=== PATIENT | male | born 1970 | race Two or more races ===

== ENCOUNTER 2019-05-03 15:43 | Emergency (ER) | payer SELFPAY ==
--- NOTE | 2019-05-03 16:10 | PDOC ---
History of Present Illness - General Chief Complaint: Laceration Stated Complaint: WOUND Time Seen by Provider: 05/03/19 16:10 History Source: Patient Exam Limitations: No Limitations - History of Present Illness Initial Comments: 05/03/19 18:13 49M w/ pmh of asthma, COPD presents after sustaining a distal Right anterior thigh laceration after using a saw when cutting shrubbery at home. Injury occurred ~15mins prior to presentation. Says blood dripped down, causing his sock to be soaked. Denies LOC. Ambulated from the scene. Denies pain to the feet , numbness. Saw was new. The injury was unintended and the patient expresses a strong desire to return home as soon as possible. Associated Symptoms: denies: chest pain, cough, diaphoresis, fever/chills, nausea/vomiting, syncope, weakness Past History - Travel Traveled outside of the country in the last 30 days: No Close contact w/someone who was outside of country & ill: No - Past Medical History Allergies/Adverse Reactions: Allergies Allergy/AdvReac Type Severity Reaction Status Date / Time No Known Allergies Allergy Verified 05/03/19 15:47 Home Medications: Ambulatory Orders Cephalexin [Keflex] 500 mg PO BID 5 Days #10 capsule 05/03/19 Anemia: No Asthma: Yes Cardiac Disorders: No CVA: No COPD: No DVT: Yes - Family Disease History Family Disease History: Other: Father (none), Mother (none) - Immunization History Immunization Up to Date: Yes - Suicide/Smoking/Psychosocial Hx Smoking Status: Yes Smoking History: Current every day smoker Years of Tobacco Use: 20 Have you smoked in the past 12 months: Yes Number of Cigarettes Smoked Daily: 10 Information on smoking cessation initiated: No Hx Alcohol Use: Yes (social) Drug/Substance Use Hx: No Review of Systems - Review of Systems Able to Perform ROS?: Yes Is the patient limited Occitan proficient: No Constitutional: No: Chills, Fever, Malaise, Weakness HEENTM: No: Blurred Vision, Double Vision Respiratory: No: Cough, Shortness of Breath, Wheezing Cardiac (ROS): No: Chest Pain, Palpitations ABD/GI: No: Abdominal Distended, Constipated, Diarrhea : No: Burning, Dysuria Musculoskeletal: Yes: Back Pain (chronic pain) Neurological: No: Headache, Weakness Hematologic/Lymphatic: No: Anemia, Easy Bleeding *Physical Exam - Vital Signs Last Vital Signs Temp Pulse Resp BP Pulse Ox 98 F 99 H 18 108/66 99 05/03/19 15:45 05/03/19 15:45 05/03/19 15:45 05/03/19 15:45 05/03/19 15:45 - Physical Exam General Appearance: Yes: Thin. No: Apparent Distress HEENT: positive: EOMI, Other (mild temporal wasting). negative: Photophobia, Muffled/Hoarse voice Neck: positive: Normal Thyroid. negative: Trachea midline, Tender midline Respiratory/Chest: positive: Lungs Clear, Normal Breath Sounds. negative: Chest Tender, Respiratory Distress, Accessory Muscle Use Cardiovascular: positive: Regular Rhythm, Regular Rate, S1, S2. negative: Edema Vascular Pulses: Dorsalis-Pedis (R): 2+, Doralis-Pedis (L): 2+ Comments:: 05/03/19 18:37 B/L posterior tibial 2+ pulses Gastrointestinal/Abdominal: positive: Soft. negative: Distended, Guarding, Tenderness Musculoskeletal: positive: Decreased Range of Motion (pain with knee flexion at less than 45degrees) Extremity: positive: Normal Capillary Refill, Other (RLE(distal anterior thigh) with 4cm simple laceration exposing subcutaneous fat; no active bleed). negative: Coldness, Cyanosis Integumentary: positive: Dry, Warm Neurologic: positive: Fully Oriented, Alert, Motor Strength 5/5 Procedures - Laceration/Wound Repair Right Anterior Leg Wound Length: 2.6 to 5.0 cm (4cm) Wound Explored: clean, no foreign body present Wound's Depth, Shape: superficial Irrigated w/ Saline: Yes Betadine Prep: No Anesthesia: 1% Lidocaine Amount of Anesthetic (ccs): 5 Wound Debrided: minimal Wound Repaired With: Sutures Suture Size/Type: 4:0 Number of Sutures: 8 Layer Closure: No Sterile Dressing Applied: Yes Splint Applied: No Medical Decision Making - Medical Decision Making 05/03/19 18:40 - wound examined with senior resident and attending at bedside - wound irrigated, anesthesized with sq lido, closed with nylon sutures, hemostasis adequate, tolerated procedure well, dressed with bactracin + 4x4 gauze + zaida wrap - patient able to ambulate w/o assistive device - patient discharged home with Keflex BID 5d, instructions for follow-up to PCP for wound check and suture removal *DC/Admit/Observation/Transfer Diagnosis at time of Disposition: Laceration of lower extremity Qualifiers: Encounter type: initial encounter Laterality: right Qualified Code(s): S81.811A - Laceration without foreign body, right lower leg, initial encounter - Discharge Dispostion Disposition: HOME Condition at time of disposition: Stable Decision to Admit order: No - Prescriptions Prescriptions: Cephalexin [Keflex] 500 mg PO BID 5 Days #10 capsule - Referrals Referrals: Black Guerrero MD [Non Staff, Medical] - - Patient Instructions Printed Discharge Instructions: DI for Laceration Repair Additional Instructions: You were treated for a simple Right anterior distal thigh laceration. The wound was rinsed out and closed with 4-0 nylon sutures. You were prescribed an antibiotic[Keflex] to be taken for 5days to prevent infection. Please see your PCP(Dr Black Guerrero) in about one week to examine the wound, then see him again in one week for suture removal. You may shower after one day, pat dry, and do not scrub wound. Please see your PCP urgently or return to the ED if you experience: - severe, uncontrolled bleeding - increased redness and pain around the laceration - thick purulent output from the wound - fevers and chills - Post Discharge Activity
--- NOTE | 2019-05-03 17:04 | PDOC ---
Documentation entered by Maria Esther Stone SCRIBE, acting as scribe for Lenka Rodrigues MD. Lenka Rodrigues MD: This documentation has been prepared by the Bertha couch Sammi, SCRIBE, under my direction and personally reviewed by me in its entirety. I confirm that the documentation accurately reflects all work, treatment, procedures, and medical decision making performed by me. Attending Attestation - Resident Resident Name: Jesus Hyde - HPI HPI: 05/03/19 16:54 The patient is a 49 year old male, with no significant PMH, who presents to the emergency department for evaluation of a laceration above the right knee sustained when using a chainsaw. He denies any other complaints. The patient denies chest pain, shortness of breath, headache and dizziness. Denies fever, chills, nausea, vomiting, diarrhea and constipation. Denies dysuria, frequency, urgency and hematuria. Allergies: NKA - Physicial Exam PE: 05/03/19 16:55 CONSTITUTIONAL: Well-appearing; well-nourished; in no apparent distress HEAD: Normocephalic; atraumatic EYES: PERRL; EOM intact ENMT: External appears normal; normal oropharynx NECK: Supple; non-tender; no cervical lymphadenopathy CARD: Normal S1, S2; no murmurs, rubs, or gallops RESP: Normal chest excursion with respiration; breath sounds clear and equal bilaterally; no wheezes, ronchi or rales ABD: Soft, non-distended; non-tender; no palpable organomegaly, no palpable hernias EXT: (+)4cm laceration above right knee. Normal ROM in all four extremities; distal pulses intact SKIN: Warm, dry, no rash NEURO: No focal neurological deficiencies. - Medical Decision Making 05/03/19 17:00 49 y/o male here in ED for eval after he cut his rt leg with a chain saw, 2-3 cm above his rt knee just prior to arrival in ED.Pt denies any other injuries or trauma. Wound is not actively bleeding. Pt is up todate with tetanus. Plan: resident will suture laceration, will anticipated dc home and out pt f/u with PCP, or return to ED for suture removal in 7-10 days. 05/03/19 18:28 Wound repaired by resident , pt stable for dc home with out pt f/u with pcp or return to ed for suture removal. Pt dc with keflex 500mg q12 x 5 days, prophylactic dose, pt was using a brand new saw.
[2019-05-03] MEDS ORDERED: BACITRACIN/POLYMYXIN B SULFATE 15 GM TUBE TP ONE (17:35)
[2019-05-03] MEDS ORDERED: BACITRACIN 0.9 GM PACKET ONE ×2 (17:38→17:54)
[2019-05-03 18:16] VITALS: BP 112/65; PULSE 71; TEMP 98.1
== END 2019-05-03 18:10 | disposition home or self-care (01) ==
LOC: JER 15:43
PROC: 0HQHXZZ Repair Right Upper Leg Skin, External Approach (ICD-10-PCS; principal; 2019-05-03)
DX: S71.111A Laceration without foreign body, right thigh, initial encounter (principal); W31.2XXA Contact with powered woodworking and forming machines, initial encounter; Y93.H2 Activity, gardening and landscaping; Y92.017 Garden or yard in single-family (private) house as the place of occurrence of the external cause; Y99.8 Other external cause status; J44.9 Chronic obstructive pulmonary disease, unspecified; J45.909 Unspecified asthma, uncomplicated; Z86.718 Personal history of other venous thrombosis and embolism
CPT/HCPCS: 99282-25

== ENCOUNTER 2019-05-15 11:04 | Emergency (ER) | payer SELFPAY ==
--- NOTE | 2019-05-15 12:18 | PDOC ---
Suture Removal/Wound Check HPI - History of Present Illness Chief Complaint: Wound Stated Complaint: WOUND INFECTON Time Seen by Provider: 05/15/19 11:37 History Source: Yes: Patient Exam Limitations: Yes: No Limitations Treated at: [facility] ED - Previous ED Treatment Type of procedure performed on last visit: Yes: Laceration Repair Tetanus Immunization: Yes: Up to Date - Onset of Previous Treatment Date of Occurence: 05/10/19 Timing/Duration/Severity of Onset: reports: Prior to presentation Past History - Travel Traveled outside of the country in the last 30 days: No Close contact w/someone who was outside of country & ill: No - Past Medical History Allergies/Adverse Reactions: Allergies Allergy/AdvReac Type Severity Reaction Status Date / Time No Known Allergies Allergy Verified 05/15/19 11:18 Home Medications: Ambulatory Orders Cephalexin [Keflex] 500 mg PO BID 5 Days #10 capsule 05/03/19 Cephalexin [Keflex] 500 mg PO BID #14 capsule 05/15/19 Sulfamethoxazole/Trimethoprim [Bactrim Ds -] 1 tab PO DAILY #20 tablet 05/15/19 Anemia: No Asthma: Yes Cardiac Disorders: No CVA: No COPD: No DVT: Yes - Family Disease History Family Disease History: Other: Father (none), Mother (none) - Immunization History Immunization Up to Date: Yes - Suicide/Smoking/Psychosocial Hx Smoking Status: Yes Smoking History: Current every day smoker Years of Tobacco Use: 20 Have you smoked in the past 12 months: Yes Number of Cigarettes Smoked Daily: 5 Information on smoking cessation initiated: No Hx Alcohol Use: Yes (DAILY) Drug/Substance Use Hx: No Suture Removal/Wound Check PE - Physical Exam Laceration/Wound Check Symptoms: reports: Pain, Redness Pain Intensity: 6 (when area is touched ) Current Severity Level: Mild Maximum Severity Level: Moderate Location of Laceration/Wound: right: Knee Pain Radiation: None *Review of Systems - Review of Systems Able to Perform ROS?: Yes Constitutional: No: Chills, Fever HEENTM: No: Nose Pain, Nose Congestion, Hearing Loss, Throat Pain, Throat Swelling Respiratory: No: Orthopnea, Shortness of Breath, Stridor Cardiac (ROS): No: Chest Pain, Lightheadedness, Palpitations ABD/GI: No: Difficulty Swallowing, Nausea, Poor Appetite, Vomiting : No: Dysuria, Hematuria, Incontinence, Urgency, Testicular Swelling Musculoskeletal: No: Joint Pain, Muscle Weakness Integumentary: Yes: Erythema. No: Bruising, Lumps Neurological: No: Numbness, Paresthesia, Seizure, Weakness Psychiatric: No: Stressors, Change in Appetite Endocrine: No: Increased Hunger Hematologic/Lymphatic: No: Blood Clots, Easy Bleeding *Physical Exam - Vital Signs Last Vital Signs Temp Pulse Resp BP Pulse Ox 98.6 F 95 H 17 100/55 L 98 05/15/19 11:18 05/15/19 11:18 05/15/19 11:18 05/15/19 11:18 05/15/19 11:18 - Physical Exam General Appearance: Yes: Nourished, Appropriately Dressed. No: Apparent Distress HEENT: positive: TMs Normal, Pharynx Normal Neck: positive: Supple. negative: Lymphadenopathy (R), Lymphadenopathy (L) Respiratory/Chest: positive: Lungs Clear Cardiovascular: positive: Regular Rhythm, Regular Rate Musculoskeletal: positive: Normal Inspection Extremity: positive: Normal Capillary Refill Integumentary: positive: Erythema, Swelling Neurologic: positive: Fully Oriented, Alert Medical Decision Making - Medical Decision Making 05/15/19 12:14 49 year old male with history of asthma and copd presents with infected sutured wound to right knee. States sutures placed 10 days ago, prescribed keflex which he never picked up due to cost of medication. REports 3 days after suturing, he noticed, redness and draining from wound was too busy to come into emergency room. Now states area is red and swollen, tender to touch. Denies fever or chills Plan suture removal wound culture counseled on importance of taking antibiotics taught wound care and instruct to return to ed 05/17 for wound check 7 sutures removed, small amount of pus draining from wound + erythema around wound, wound culture obtained and sent to labs rx: keflex and bactrim *DC/Admit/Observation/Transfer Diagnosis at time of Disposition: Visit for suture removal, Wound infection - Discharge Dispostion Disposition: HOME Condition at time of disposition: Good Decision to Admit order: No - Prescriptions Prescriptions: Cephalexin [Keflex] 500 mg PO BID #14 capsule Sulfamethoxazole/Trimethoprim [Bactrim Ds -] 1 tab PO DAILY #20 tablet - Referrals - Patient Instructions Printed Discharge Instructions: DI for Suture Removal, DI for Wound Infection Additional Instructions: Please remove bandaid and was wound gently with mild soap and water apply warm compress to area for 20 minutes 3 to 4 times daily Return to emergency room 05/17/2019 for wound check Please take both medications as prescribed until completed. May take them together - Post Discharge Activity Forms/Work/School Notes: Back to Work
[2019-05-15 12:47] VITALS: BP 101/65; PULSE 93; TEMP 97.9
[2019-05-17] MEDS ORDERED: ONDANSETRON *ODT* 4 MG TABLET ONE (13:53)
[2019-05-19] MEDS ORDERED: LIDOCAINE HCL 1%, 10 MG/ML (20ML VIAL) ONE (15:40)
== END 2019-05-15 12:30 | disposition home or self-care (01) ==
LOC: JERFT 11:04
DX: Z48.02 Encounter for removal of sutures (principal); L08.9 Local infection of the skin and subcutaneous tissue, unspecified
CPT/HCPCS: 87070; 87186; 87205; 99283-25

== ENCOUNTER 2019-05-19 14:32 | Emergency (ER) | payer SELFPAY ==
--- NOTE | 2019-05-19 14:42 | PDOC ---
Rapid Medical Evaluation Time Seen by Provider: 05/19/19 14:40 Medical Evaluation: Allergies Allergy/AdvReac Type Severity Reaction Status Date / Time No Known Allergies Allergy Verified 05/15/19 11:18 05/19/19 14:40 CC: right thigh wound- non-compliant with abx PE: 3cm circular area of swelling to right anterior thigh superior to patella Orders: nothing Patient will proceed to ED for continued evaluation. 05/19/19 14:43 Discharge Disposition - Diagnosis Wound infection - Referrals - Patient Instructions - Post Discharge Activity
[2019-05-19 14:44] VITALS: BP 102/59; PULSE 97
--- NOTE | 2019-05-19 16:13 | PDOC ---
History of Present Illness - General Chief Complaint: Abscess Boil Stated Complaint: RT KNEE INFECTION Time Seen by Provider: 05/19/19 14:40 History Source: Patient Exam Limitations: No Limitations Past History - Travel Traveled outside of the country in the last 30 days: No Close contact w/someone who was outside of country & ill: No - Past Medical History Allergies/Adverse Reactions: Allergies Allergy/AdvReac Type Severity Reaction Status Date / Time No Known Allergies Allergy Verified 05/19/19 14:44 Home Medications: Ambulatory Orders Cephalexin [Keflex] 500 mg PO BID 5 Days #10 capsule 05/03/19 Cephalexin [Keflex] 500 mg PO BID #14 capsule 05/15/19 Sulfamethoxazole/Trimethoprim [Bactrim Ds -] 1 tab PO DAILY #20 tablet 05/15/19 Cephalexin Monohydrate [Keflex -] 500 mg PO BID #14 capsule 05/19/19 Sulfamethoxazole/Trimethoprim [Bactrim Ds -] 1 tab PO BID #14 tablet 05/19/19 Anemia: No Asthma: Yes Cardiac Disorders: No CVA: No COPD: No DVT: Yes - Family Disease History Family Disease History: Other: Father (none), Mother (none) - Immunization History Immunization Up to Date: Yes - Suicide/Smoking/Psychosocial Hx Smoking Status: Yes Smoking History: Current every day smoker Years of Tobacco Use: 20 Have you smoked in the past 12 months: Yes Number of Cigarettes Smoked Daily: 10 Information on smoking cessation initiated: No Hx Alcohol Use: Yes Drug/Substance Use Hx: No Review of Systems - Review of Systems Able to Perform ROS?: Yes Comments:: 05/19/19 17:34 CONSTITUTIONAL: Absent: fever, chills, diaphoresis, generalized weakness, malaise, loss of appetite MUSCULOSKELETAL: Absent: myalgia, arthralgia, joint swelling SKIN: Present: abscess/collection Absent: rash, itching, pallor HEMATOLOGIC/IMMUNOLOGIC: Absent: easy bleeding, easy bruising, lymphadenopathy, frequent infections NEUROLOGIC: Absent: headache, focal weakness or paresthesias, dizziness, unsteady gait, seizure, mental status changes, bladder or bowel incontinence PSYCHIATRIC: Absent: anxiety, depression, suicidal or homicidal ideation, hallucinations. Is the patient limited Libyan proficient: No *Physical Exam - Vital Signs Last Vital Signs Temp Pulse Resp BP Pulse Ox 97 H 16 102/59 L 98 05/19/19 14:41 05/19/19 14:41 05/19/19 14:41 05/19/19 14:41 - Physical Exam Comments: 05/19/19 17:34 GENERAL: The patient is awake, alert, and fully oriented, in no acute distress. HEAD: Normal with no signs of trauma. EYES: Pupils equal, round and reactive to light, extraocular movements intact, sclera anicteric, conjunctiva clear. EXTREMITIES: Normal range of motion, no edema. NEUROLOGICAL: Normal speech, normal gait. PSYCH: Normal mood, normal affect. SKIN: 3cm round fluctuance superior to the R patella, old laceration scar lying over the lateral portion. No obvious pus coming from the site, warm to touch. Warm, Dry, normal turgor. Procedures - Incision and Drainage I&D Site: Right: Leg (upper) Betadine cleansed: Yes Anesthesia: 1% Lidocaine Volume(ml): 11 Blade Size: 11 Attempts: 1 (serosanguineous fluid drained) Iodinated Packin/4 in Dressing: Yes Medical Decision Making - Medical Decision Making 05/19/19 17:40 the patient is a 49-year-old male, smoker otherwise no past medical history, presents to the ER today for a fluid collection above his right knee. He states that he had a laceration repair where the fluid collection is approximately 1 week ago. He was told to start antibiotics however he did not pick them up due to expense. He followed up in the ER approximately 1 week ago for an initial presentation of the fluid collection. He was represcribed antibiotics and wound culture was taken. He states he was still unable to afford the antibiotics and has not taken any throughout the course of the fluid collection or laceration. He states that since then the fluid collection has gotten bigger and is painful to touch. He states he has noted pus coming out of it. Denies fevers, chills, shortness of breath, nausea, vomiting, diarrhea, numbness and tingling and weakness to the affected extremity. A/P: Abscess versus seroma On exam patient with a 3 cm fluctuance superior to the right patella. The old laceration overlies the lateral aspect of the fluctuance. No obvious pus drainage or cellulitis noted. Incision and drainage performed. Wound culture retaken. Copious amounts of serosanguineous fluid noted drained from the site. Wound was explored and loculations were broken up. Was then flushed with normal saline approximately 20 cc Packing placed and patient told to follow-up in 2 days for reevaluation Wound culture from previous visit shows MRSA. Prescribed both Bactrim and Keflex. Medications sent to [facility] where they have a $4 list. Patient states he is able to afford Discharge home with strict return precautions I discussed the physical exam findings, ancillary test results and final diagnoses with the patient. I answered all of the patient's questions. The patient was satisfied with the care received and felt comfortable with the discharge plan and treatment plan. The Patient agrees to follow up with the primary care physician/specialist within 24-72 hours. Return precautions were given. *DC/Admit/Observation/Transfer Diagnosis at time of Disposition: Wound infection - Discharge Dispostion Disposition: HOME Condition at time of disposition: Stable Decision to Admit order: No - Prescriptions Prescriptions: Cephalexin Monohydrate [Keflex -] 500 mg PO BID #14 capsule Sulfamethoxazole/Trimethoprim [Bactrim Ds -] 1 tab PO BID #14 tablet - Referrals Referrals: Black Guerrero MD [Primary Care Provider] - - Patient Instructions Printed Discharge Instructions: DI for Incision and Drainage of a Skin Abscess Additional Instructions: You have an abscess. This is a skin infection with a collection of fluid Please take the Bactrim and Keflex twice a day for one week. Please take all the antibiotics even if you feel better. Please avoid shaving the skin around the area of redness. You may take Tylenol or Motrin as needed for pain. Return in 2 days for a wound check Return to the emergency department if you have worsening redness, fevers, increasing pain, or have any changes in your symptoms. - Post Discharge Activity
== END 2019-05-19 16:14 | disposition home or self-care (01) ==
LOC: JERFT 14:32
PROC: 0H9KXZZ Drainage of Right Lower Leg Skin, External Approach (ICD-10-PCS; principal; 2019-05-19)
DX: L08.9 Local infection of the skin and subcutaneous tissue, unspecified (principal); F17.210 Nicotine dependence, cigarettes, uncomplicated; Z91.14 Patient's other noncompliance with medication regimen
CPT/HCPCS: 87070; 87186; 87205; 99282-25

== ENCOUNTER 2019-05-20 12:38 | Inpatient (IN) | payer SELFPAY ==
[2019-05-20] MEDS ORDERED: morphine CARPU-JECT 4 MG/1 ML DISP.SYRIN IVPUSH ONE ×2 (13:42→16:44)
[2019-05-20] MEDS ORDERED: CLINDAMYCIN 600MG PREMIX IVPB 600 MG/50 ML BAG IVPB ONE (13:43)
--- NOTE | 2019-05-20 14:30 | PDOC ---
History of Present Illness - General Chief Complaint: Pain Stated Complaint: RT. KNEE PAIN Time Seen by Provider: 05/20/19 13:12 History Source: Patient Exam Limitations: No Limitations Past History - Past Medical History Allergies/Adverse Reactions: Allergies Allergy/AdvReac Type Severity Reaction Status Date / Time No Known Allergies Allergy Verified 05/20/19 13:11 Home Medications: Ambulatory Orders Cephalexin [Keflex] 500 mg PO BID 5 Days #10 capsule 05/03/19 Cephalexin [Keflex] 500 mg PO BID #14 capsule 05/15/19 Sulfamethoxazole/Trimethoprim [Bactrim Ds -] 1 tab PO DAILY #20 tablet 05/15/19 Cephalexin Monohydrate [Keflex -] 500 mg PO BID #14 capsule 05/19/19 Sulfamethoxazole/Trimethoprim [Bactrim Ds -] 1 tab PO BID #14 tablet 05/19/19 Anemia: No Asthma: Yes Cardiac Disorders: No CVA: No COPD: No DVT: Yes - Family Disease History Family Disease History: Other: Father (none), Mother (none) - Immunization History Immunization Up to Date: Yes - Suicide/Smoking/Psychosocial Hx Smoking Status: Yes Smoking History: Never smoked Years of Tobacco Use: 20 Have you smoked in the past 12 months: Yes Number of Cigarettes Smoked Daily: 10 Hx Alcohol Use: Yes Drug/Substance Use Hx: No Review of Systems - Review of Systems Able to Perform ROS?: Yes Comments:: 05/20/19 14:39 CONSTITUTIONAL: Absent: fever, chills, diaphoresis, generalized weakness, malaise, loss of appetite HEENT: Absent: rhinorrhea, nasal congestion, throat pain, throat swelling, difficulty swallowing, mouth swelling, ear pain, eye pain, visual Changes CARDIOVASCULAR: Absent: chest pain, loss of consciousness, palpitations, irregular heart rate, peripheral edema RESPIRATORY: Absent: cough, shortness of breath, dyspnea with exertion, orthopnea, wheezing, stridor, hemoptysis GASTROINTESTINAL: Absent: abdominal pain, abdominal distension, nausea, vomiting, diarrhea, constipation, melena, hematochezia GENITOURINARY: Absent: dysuria, frequency, urgency, hesitancy, hematuria, flank pain, genital pain MUSCULOSKELETAL: Present: R upper leg pain Absent: myalgia, arthralgia, joint swelling SKIN: Present: Redness to the R upper leg. Absent: itching, pallor HEMATOLOGIC/IMMUNOLOGIC: Absent: easy bleeding, easy bruising, lymphadenopathy, frequent infections ENDOCRINE: Absent: unexplained weight gain, unexplained weight loss, heat intolerance, cold intolerance NEUROLOGIC: Absent: headache, focal weakness or paresthesias, dizziness, unsteady gait, seizure, mental status changes, bladder or bowel incontinence PSYCHIATRIC: Absent: anxiety, depression, suicidal or homicidal ideation, hallucinations. Is the patient limited Dominican proficient: No *Physical Exam - Vital Signs Last Vital Signs Temp Pulse Resp BP Pulse Ox 97.6 F 87 18 91/61 100 05/20/19 13:09 05/20/19 13:09 05/20/19 13:09 05/20/19 13:09 05/20/19 13:09 - Physical Exam Comments: 05/20/19 14:40 GENERAL: Well developed, well nourished. Awake and alert. No acute distress. HEENT: Normocephalic, atraumatic. PERRLA, EOMI. No conjunctival pallor. Sclera are non- icteric. Moist mucous membranes. Oropharynx is clear. NECK: Supple. Full ROM. No JVD. Carotid pulses 2+ and symmetric, without bruits. No thyromegaly. No lymphadenopathy. CARDIOVASCULAR: Regular rate and rhythm. No murmurs, rubs, or gallops. Distal pulses are 2+ and symmetric. PULMONARY: No evidence of respiratory distress. Lungs clear to auscultation bilaterally. No wheezing, rales or rhonchi. ABDOMINAL: Soft. Non-tender. Non-distended. No rebound or guarding. No organomegaly. Normoactive bowel sounds. MUSCULOSKELETAL Pt able to flex and extend R knee. No pain to the joint. Normal range of motion at all joints. No bony deformities or tenderness. No CVA tenderness. EXTREMITIES: No cyanosis. No clubbing. No edema. No calf tenderness. SKIN: TTP of the R upper leg around the surrounding cellulitis. Cellulitic area to the R lateral leg over the I&D approximately 4cm round. Warm and dry. Normal capillary refill. No rashes. No jaundice. NEUROLOGICAL: Alert, awake, appropriate. Cranial nerves 2-12 intact. No deficits to light touch and temperature in face, upper extremities and lower extremities. No motor deficits in the in face, upper extremities and lower extremities. Normoreflexic in the upper and lower extremities. Normal speech. Toes are down- going bilaterally. Gait is normal without ataxia. PSYCHIATRIC: Cooperative. Good eye contact. Appropriate mood and affect. ED Treatment Course - LABORATORY CBC & Chemistry Diagram: 05/20/19 14:00 05/20/19 14:00 - Medications Given in the ED: ED Medications Discontinued Medications Generic Name Dose Route Start Last Admin Trade Name Suzan PRN Reason Stop Dose Admin Clindamycin Phosphate 600 mg in 50 mls @ 100 mls/hr 05/20/19 13:43 05/20/19 14:08 Cleocin 600 Mg Premix Ivpb - IVPB 05/20/19 14:12 100 mls/hr ONCE ONE Administration Protocol Morphine Sulfate 4 mg 05/20/19 13:42 05/20/19 14:08 Morphine Injection - IVPUSH 05/20/19 13:43 4 mg ONCE ONE Administration Medical Decision Making - Medical Decision Making 05/20/19 14:34 The patient is a 49-year-old male, smoker COPD, asthma, presents to the ER today for a fluid collection above his right knee. He states that he had a laceration repair where the fluid collection is approximately 1 week ago. He was told to start antibiotics however he did not pick them up due to expense. He followed up in the ER approximately 1 week ago for an initial presentation of the fluid collection. He was represcribed antibiotics and wound culture was taken. He states he was still unable to afford the antibiotics and has not taken any throughout the course of the fluid collection or laceration. He states that since then the fluid collection has gotten bigger and is painful to touch. He states he has noted pus coming out of it. I drained the collection yesterday with a large amount of serosaguanous fluid expressed from the collection. Wound culture was retaken. Pt was prescribed bactrim and keflex to cover the MRSA wound culture from the other day. Today he presents to the ER with increased pain around the site and redness. He states he has taken one dose of both the bactrim and keflex. He states it hurts to walk. No knee pain. A/P: Cellulitis vs abscess On exam the area around the I&D is erythematous and warm to the touch. No fluctuance appreciated Packing still in place Labs, Blood cultures drawn IV Clindamycin and morphine given for pain Will need US Pt to be transferred to the main ER as I anticipate pt will need admission for IV abx. Case discussed with SALBADOR Pretty. *DC/Admit/Observation/Transfer Diagnosis at time of Disposition: Cellulitis Qualifiers: Site of cellulitis: extremity Site of cellulitis of extremity: upper extremity Laterality: right Qualified Code(s): L03.113 - Cellulitis of right upper limb - Referrals Referrals: Black Guerrero MD [Primary Care Provider] - - Patient Instructions - Post Discharge Activity
[2019-05-20 14:35] LABS: BASO % 0.7 % (0-2.0); EOS % 4.5 % (0-4.5); HEMATOCRIT 46.5 % (35.4-49); HEMOGLOBIN 15.9 GM/dL (11.7-16.9); LYMPH % 16.7 % (8-40); MCH 32.6 pg (25.7-33.7); MCHC 34.1 g/dl (32.0-35.9); MEAN CELL VOLUME 95.7 fl (80-96); MEAN PLT VOLUME 7.1 fl (7.5-11.1); NEUT % 69.1 % (42.8-82.8); PLATELET COUNT 271 K/MM3 (134-434); RBC 4.86 M/mm3 (4.00-5.60); RDW 13.9 % (11.9-15.9); WHITE BLOOD COUNT 8.1 K/mm3 (4.0-10.0)
[2019-05-20 14:51] LABS: INR 0.92 (0.83-1.09); PROTHROMBIN TIME (PATIENT) 10.9 SEC (9.7-13.0)
--- NOTE | 2019-05-20 15:00 | PDOC ---
*Physical Exam - Vital Signs Last Vital Signs Temp Pulse Resp BP Pulse Ox 97.6 F 87 18 91/61 100 05/20/19 13:09 05/20/19 13:09 05/20/19 13:09 05/20/19 13:09 05/20/19 13:09 ED Treatment Course - LABORATORY CBC & Chemistry Diagram: 05/20/19 14:00 05/20/19 14:00 - ADDITIONAL ORDERS Additional order review: Laboratory Results 05/20/19 14:00 PT with INR 10.90 INR 0.92 05/20/19 14:00 RBC 4.86 MCV 95.7 MCHC 34.1 RDW 13.9 MPV 7.1 L Neutrophils % 69.1 Lymphocytes % 16.7 Monocytes % 9.0 Eosinophils % 4.5 Basophils % 0.7 - RADIOLOGY Radiology Studies Ordered: Category Date Time Status CHEST PA & LAT [RAD] Stat Radiology 05/20/19 14:37 Ordered - Medications Given in the ED: ED Medications Discontinued Medications Generic Name Dose Route Start Last Admin Trade Name Mishaq PRN Reason Stop Dose Admin Clindamycin Phosphate 600 mg in 50 mls @ 100 mls/hr 05/20/19 13:43 05/20/19 14:08 Cleocin 600 Mg Premix Ivpb - IVPB 05/20/19 14:12 100 mls/hr ONCE ONE Administration Protocol Morphine Sulfate 4 mg 05/20/19 13:42 05/20/19 14:08 Morphine Injection - IVPUSH 05/20/19 13:43 4 mg ONCE ONE Administration Medical Decision Making - Medical Decision Making 05/20/19 15:25 Received signout from Sun Montejo. Patient is 49M here today with laceration complicated by abscess. Did not take antibiotics as outpatient, MRSA positive. Now developing cellulitic changes. Sensitive to clinda, given clinda. Vitals normal and stable. CBC normal. US shows 1.5x0.5 cm fluid collection, but shows appropriate placement of packing. Will not I&D. Case d/w Dr Kaye. 05/20/19 16:04 EKG shows NSR with rate of 70. No st elevations/depressions. Normal axis. Normal intervals. No significant t wave abnormalities. *DC/Admit/Observation/Transfer Diagnosis at time of Disposition: Cellulitis Qualifiers: Site of cellulitis: extremity Site of cellulitis of extremity: upper extremity Laterality: right Qualified Code(s): L03.113 - Cellulitis of right upper limb - Discharge Dispostion Condition at time of disposition: Fair - Referrals - Patient Instructions - Post Discharge Activity
[2019-05-20 15:02] LABS: ALBUMIN 4.1 g/dl (3.4-5.0); BILIRUBIN,TOTAL 0.5 mg/dL (0.2-1); BLOOD UREA NITROGEN 14.2 mg/dL (7-18); CALCIUM 9.2 mg/dL (8.5-10.1); CREATININE 0.9 mg/dL (0.55-1.3); POTASSIUM 4.1 mmol/L (3.5-5.1); TOT PROT 7.7 g/dl (6.4-8.2)
--- NOTE | 2019-05-20 15:07 | PDOC ---
*Physical Exam - Vital Signs Last Vital Signs Temp Pulse Resp BP Pulse Ox 97.6 F 87 18 91/61 100 05/20/19 13:09 05/20/19 13:09 05/20/19 13:09 05/20/19 13:09 05/20/19 13:09 - Physical Exam Comments: 05/20/19 15:21 Gen: aaox3, uncomfortable heart: +s1s2 reg lungs: cta b/l abd: soft, nt/nd +bs ext: R proximal knee swelling (distal femure) - packing in place with fluctuance , warmth, redness, and surrounding erythema, no knee involvement ED Treatment Course - LABORATORY CBC & Chemistry Diagram: 05/20/19 14:00 05/20/19 14:00 - ADDITIONAL ORDERS Additional order review: Laboratory Results 05/20/19 05/20/19 14:00 14:00 PT with INR 10.90 INR 0.92 Sodium 138 Potassium 4.1 Chloride 104 Carbon Dioxide 27 Anion Gap 7 L BUN 14.2 Creatinine 0.9 Est GFR (CKD-EPI)AfAm 115.83 Est GFR (CKD-EPI)NonAf 99.94 Random Glucose 89 Calcium 9.2 Total Bilirubin 0.5 AST 30 ALT 25 Alkaline Phosphatase 102 Total Protein 7.7 Albumin 4.1 05/20/19 14:00 RBC 4.86 MCV 95.7 MCHC 34.1 RDW 13.9 MPV 7.1 L Neutrophils % 69.1 Lymphocytes % 16.7 Monocytes % 9.0 Eosinophils % 4.5 Basophils % 0.7 - Medications Given in the ED: ED Medications Discontinued Medications Generic Name Dose Route Start Last Admin Trade Name Mishaq PRN Reason Stop Dose Admin Clindamycin Phosphate 600 mg in 50 mls @ 100 mls/hr 05/20/19 13:43 05/20/19 14:08 Cleocin 600 Mg Premix Ivpb - IVPB 05/20/19 14:12 100 mls/hr ONCE ONE Administration Protocol Morphine Sulfate 4 mg 05/20/19 13:42 05/20/19 14:08 Morphine Injection - IVPUSH 05/20/19 13:43 4 mg ONCE ONE Administration Medical Decision Making - Medical Decision Making 05/20/19 15:26 a/p: 49yo male uptriaged from fast track for worsening cellulitis to RLE and worsening abscess -s/p I&D yesterday, packing in place, with worsening swelling -pt denies f/c -picked up abx this am -bedside ultrasound shows packing in place at abscess site -will start abx - hx of MRSA -culture from yesterday pending -resident discussed the case with GLENN who accepts pt to service *DC/Admit/Observation/Transfer Diagnosis at time of Disposition: Cellulitis Qualifiers: Site of cellulitis: extremity Site of cellulitis of extremity: upper extremity Laterality: right Qualified Code(s): L03.113 - Cellulitis of right upper limb - Discharge Dispostion Condition at time of disposition: Fair Decision to Admit order: Yes - Referrals Referrals: Black Guerrero MD [Primary Care Provider] - - Patient Instructions - Post Discharge Activity
--- NOTE | 2019-05-20 16:01 | PN ---
Teaching Attending Note Name of Resident: Dayna Coley ATTENDING PHYSICIAN STATEMENT I saw and evaluated the patient. I reviewed the resident's note and discussed the case with the resident. I agree with the resident's findings and plan as documented. SUBJECTIVE: This is a 49 year old man with a history of asthma/COPD, PE, vertebral fracture after a fall from a roof who comes to the ED complaining of pain in his anterior right thigh. He sustained a laceration to his anterior right thigh 2 weeks ago while using a saw to cut a tree. He was seen in the ED on May 03. The wound was cleaned and sutured and he was discharged with a prescription for Keflex which he did not fill because he could not afford it. He returned on May 15 for suture removal. The sutures were removed and pus was noted. A culture was done and he was discharged with prescriptions for Keflex and Bactrim, which he again did not fill. The culture grew MRSA. He returned on May 19 because the area was becoming more painful and swollen. An I&D was done, no pus was noted, culture was sent, and the wound was packed. Prescriptions were sent to [facility] where he could afford them. He returned again today because he felt he wasn't improving and he thought he was having fevers. OBJECTIVE: Vital Signs Period Temp Pulse Resp BP Sys/Marshall Pulse Ox Last 24 Hr 97.6 F 87 18 91/61 100 HEART: S1S2, RRR LUNGS: Clear ABDOMEN: Soft, non-tender, non-distended, normal BS EXTREMITIES: No edema SKIN: Distal anterior right thigh with erythema, tenderness, warmth and fluctuance Laboratory Results - last 24 hr 05/20/19 05/20/19 05/20/19 14:00 14:00 14:00 WBC 8.1 RBC 4.86 Hgb 15.9 Hct 46.5 MCV 95.7 MCH 32.6 MCHC 34.1 RDW 13.9 Plt Count 271 MPV 7.1 L Absolute Neuts (auto) 5.6 Neutrophils % 69.1 Lymphocytes % 16.7 Monocytes % 9.0 Eosinophils % 4.5 Basophils % 0.7 Nucleated RBC % 0 PT with INR 10.90 INR 0.92 Sodium 138 Potassium 4.1 Chloride 104 Carbon Dioxide 27 Anion Gap 7 L BUN 14.2 Creatinine 0.9 Est GFR (CKD-EPI)AfAm 115.83 Est GFR (CKD-EPI)NonAf 99.94 Random Glucose 89 Calcium 9.2 Total Bilirubin 0.5 AST 30 ALT 25 Alkaline Phosphatase 102 Total Protein 7.7 Albumin 4.1 Home Medications Medication Instructions Recorded Cephalexin [Keflex] 500 mg PO BID 5 Days #10 capsule 05/03/19 Cephalexin [Keflex] 500 mg PO BID #14 capsule 05/15/19 Sulfamethoxazole/Trimethoprim 1 tab PO DAILY #20 tablet 05/15/19 [Bactrim Ds -] Cephalexin Monohydrate [Keflex -] 500 mg PO BID #14 capsule 05/19/19 Sulfamethoxazole/Trimethoprim 1 tab PO BID #14 tablet 05/19/19 [Bactrim Ds -] ASSESSMENT AND PLAN: This is a 49 year old man with a history of asthma/COPD, PE, vertebral fracture after a fall from a roof who presented to the ED multiple times with pain in his anterior right thigh after sustaining a laceration, with MRSA growing in culture. 1. MRSA abscess and cellulitis of anterior right thigh - s/p I&D 05/19 - Wound culture from 05/15 grew MRSA - Clindamycin given in ED - ID consult 2. Asthma/COPD - Stable - Albuterol as needed
--- NOTE | 2019-05-20 16:07 | HP ---
CHIEF COMPLAINT: abscess on right thigh PCP:Dr. Guerrero HISTORY OF PRESENT ILLNESS: 49 y/o male with PMH of asthma/COPD, previous PE after breaking his back from falling off the roof- presents to the ED with complaints of an abscess on his right thigh. This all started 2 weeks ago after he got a laceration to his right thigh from a saw while he was cutting down a tree; he came to the ED and was sent home with keflex, of which he never took because he could not afford it. he came back a few days later when he noticed there was a lfluid collection forming, they drained it/sutured it in the ED, took cultures, and he was sent home, he came back a week later (yesterday) for the sutures to be removed and the cultures were found to grow MRSA so they sent him home with keflex and bactrim. He came back today because the pain was very unbearable- every little move exacerbated the pain. He has had a few days of fever in the interim and a few days of nausea. he denies any recent travel or sick contacts ER course was notable for: (1)BP 91/61; HR 87 afebrile (2)all l;abs wnl (3)given clindamycin X1 and morphine Recent Travel: denies PAST MEDICAL HISTORY: see above PAST SURGICAL HISTORY: denies Social History: Smoking:smokes 1/2ppd every other day Alcohol:social Drugs: denies Family History: both sides have pancreatic and colon ca; father DM Allergies No Known Allergies Allergy (Verified 05/20/19 13:11) HOME MEDICATIONS: Home Medications Medication Instructions Recorded Cephalexin [Keflex] 500 mg PO BID 5 Days #10 capsule 05/03/19 Cephalexin [Keflex] 500 mg PO BID #14 capsule 05/15/19 Sulfamethoxazole/Trimethoprim 1 tab PO DAILY #20 tablet 05/15/19 [Bactrim Ds -] Cephalexin Monohydrate [Keflex -] 500 mg PO BID #14 capsule 05/19/19 Sulfamethoxazole/Trimethoprim 1 tab PO BID #14 tablet 05/19/19 [Bactrim Ds -] REVIEW OF SYSTEMS CONSTITUTIONAL: Absent: fever, chills, diaphoresis, generalized weakness, malaise, loss of appetite, weight change HEENT: Absent: rhinorrhea, nasal congestion, throat pain, throat swelling, difficulty swallowing, mouth swelling, ear pain, eye pain, visual changes CARDIOVASCULAR: Absent: chest pain, syncope, palpitations, irregular heart rate, lightheadedness , peripheral edema RESPIRATORY: Absent: cough, shortness of breath, dyspnea with exertion, orthopnea, wheezing, stridor, hemoptysis GASTROINTESTINAL: Absent: abdominal pain, abdominal distension, nausea, vomiting, diarrhea, constipation, melena, hematochezia GENITOURINARY: Absent: dysuria, frequency, urgency, hesitancy, hematuria, flank pain, genital pain MUSCULOSKELETAL: Present: right knee pain Absent: myalgia, arthralgia, joint swelling, back pain , neck pain SKIN: Absent: rash, itching, pallor HEMATOLOGIC/IMMUNOLOGIC: Absent: easy bleeding, easy bruising, lymphadenopathy, frequent infections ENDOCRINE: Absent: unexplained weight gain, unexplained weight loss, heat intolerance, cold intolerance NEUROLOGIC: Absent: headache, focal weakness or paresthesias, dizziness, unsteady gait, seizure, mental status changes, bladder or bowel incontinence PSYCHIATRIC: Absent: anxiety, depression, suicidal or homicidal ideation, hallucinations. PHYSICAL EXAMINATION Vital Signs - 24 hr 05/20/19 13:09 Temperature 97.6 F Pulse Rate 87 Respiratory 18 Rate Blood Pressure 91/61 O2 Sat by Pulse 100 Oximetry (%) GENERAL: Awake, alert, and fully oriented, in some acute distress. EYES: PEERLA; EOMI; no scleral icterus NECK: no JVD; no lymphadenopathy. LUNGS: CTA B/L; no rales, rhonchi or wheezing HEART: Regular rate and rhythm, normal S1 and S2 without murmur, rub or gallop. ABDOMEN: soft; NT/ND +BS in all 4 quadrants MUSCULOSKELETAL: Normal range of motion at all joints. No bony deformities or tenderness. No CVA tenderness. LOWER EXTREMITIES: Right proximal knee swelling ; packing in place with area of fluctuance, slight erythema no active drainage, extremely tender upon palpation PSYCHIATRIC: Cooperative. Good eye contact. Appropriate mood and affect. SKIN: Warm, dry, normal turgor, no rashes or lesions noted, normal capillary refill. Laboratory Results - last 24 hr 05/20/19 05/20/19 05/20/19 14:00 14:00 14:00 WBC 8.1 RBC 4.86 Hgb 15.9 Hct 46.5 MCV 95.7 MCH 32.6 MCHC 34.1 RDW 13.9 Plt Count 271 MPV 7.1 L Absolute Neuts (auto) 5.6 Neutrophils % 69.1 Lymphocytes % 16.7 Monocytes % 9.0 Eosinophils % 4.5 Basophils % 0.7 Nucleated RBC % 0 PT with INR 10.90 INR 0.92 Sodium 138 Potassium 4.1 Chloride 104 Carbon Dioxide 27 Anion Gap 7 L BUN 14.2 Creatinine 0.9 Est GFR (CKD-EPI)AfAm 115.83 Est GFR (CKD-EPI)NonAf 99.94 Random Glucose 89 Calcium 9.2 Total Bilirubin 0.5 AST 30 ALT 25 Alkaline Phosphatase 102 Total Protein 7.7 Albumin 4.1 ASSESSMENT/PLAN: 49 y/o male with PMH of asthma/COPD, previous PE after breaking his back from falling off the roof- presents to the ED with complaints of an abscess on his right thigh #Abscess on right thigh patients culture from 05/15 growing MRSA sensitive to clindamycin -bedside U/S was done in the ED- showing no current drainage ; with packing in place -patient started on IV clindamycin -morphine PRN for pain -Dr. Salazar consult -monitor hemodynamics and pain #Asthma -not currently in an exacerbation -albuterol PRN F/E/N not on fluids monitor electrolytes regular diet dvt ppx: lovenox Problem List - Problem (1) Laceration of lower extremity Code(s): S81.819A - LACERATION WITHOUT FOREIGN BODY, UNSP LOWER LEG, INIT ENCNTR Qualifiers: Encounter type: initial encounter Laterality: right Qualified Code(s): S81.811A - Laceration without foreign body, right lower leg, initial encounter (2) Wound infection Code(s): T14.8XXA - OTHER INJURY OF UNSPECIFIED BODY REGION, INITIAL ENCOUNTER; L08.9 - LOCAL INFECTION OF THE SKIN AND SUBCUTANEOUS TISSUE, UNSP Visit type - Emergency Visit Emergency Visit: Yes ED Registration Date: 05/20/19 Care time: The patient presented to the Emergency Department on the above date and was hospitalized for further evaluation of their emergent condition. - New Patient This patient is new to me today: Yes Date on this admission: 05/20/19 - Critical Care Critical Care patient: No ATTENDING PHYSICIAN STATEMENT I saw and evaluated the patient. I reviewed the resident's note and discussed the case with the resident. I agree with the resident's findings and plan as documented. SUBJECTIVE: OBJECTIVE: ASSESSMENT AND PLAN:
[2019-05-20] MEDS ORDERED: SODIUM CHLORIDE 500 ML IV STA (16:20)
[2019-05-20] MEDS ORDERED: ALBUTEROL SO4 8 GM HFA INHALER IH PRN (16:21)
[2019-05-20] MEDS: ENOXAPARIN NA (PORCINE) 40 MG/0.4 ML DISP.SYRIN SQ SCH (16:49)
[2019-05-20] MEDS ORDERED: VANCOMYCIN 1 GRAM (PRE-DOCKED) 1,000 MG/250 ML BAG IVPB ONE (18:32)
[2019-05-20] MEDS: VANCOMYCIN 1 GRAM (PRE-DOCKED) 1,000 MG/250 ML BAG IVPB SCH (18:36)
--- NOTE | 2019-05-20 19:02 | PN ---
Progress Note (short form) - Note Progress Note: ID CONSULT DICTATED SOFT TISSUE ABSCESS R THIGH MRSA SURGICAL EVALUATION VANCOMYCIN CONTACT PRECAUTIONS
--- NOTE | 2019-05-20 20:59 | CONS ---
DATE OF CONSULTATION: DATE OF DICTATION: 05/20/2019 INFECTIOUS DISEASE CONSULTATION HISTORY OF PRESENT ILLNESS: The patient is a 49-year-old male who is evaluated for soft tissue abscess of the right thigh, MRSA. He presented to the emergency room on May 03, 2019, after sustaining a laceration to his anterior right thigh above the knee. The laceration was sutured. He was discharged home. He returned for a wound check on May 15, 2019, where he was noted to have a fluctuant swelling in that area. Cultures were obtained and are positive for MRSA. He had underwent a drainage procedure with packing. In the interim, he developed worsening localized swelling, pain and redness and he returned for further evaluation and is now being admitted for soft tissue abscess right anterior thigh. Despite being prescribed Keflex and Bactrim, the patient did not take the prescribed antibiotics because of cost issues. He denies any associated fevers or chills. The patient denies prior history of MRSA infection or serious soft tissue infection requiring hospitalization. PAST MEDICAL HISTORY: Positive for COPD and asthma. ALLERGIES: No known allergies. LABORATORY DATA: White count 8.1, platelets 271, creatinine 0.9. SOCIAL HISTORY: Positive for tobacco use. PHYSICAL EXAMINATION: General: On exam, he is awake and alert, in no acute distress. Vital signs: Temperature 97.6, blood pressure 91/61, pulse 87 regular, respirations 18 per minute. HEENT: Sclerae anicteric. Cardiovascular: Heart sounds S1, S2. Lungs: Clear. Abdomen: Soft, nontender. Extremities: Examination of the right lower extremity, there is an approximately 6-cm circular area present over the anterior right thigh above the knee. It is exquisitely tender. It is erythematous. There is packing in place. No lymphangitis is noted. IMPRESSION: 1. Soft tissue abscess right thigh. 2. Positive wound culture methicillin-resistant Staphylococcus aureus. Advise surgical evaluation. Vancomycin 15 mg per kg IV piggyback every 12 hours. Local wound care. Contact precautions. Thank you for the kind referral. SHARRI GARCIA M.D. SALLIE/[id number]
[2019-05-20] MEDS ORDERED: CLINDAMYCIN 600MG PREMIX IVPB 600 MG/50 ML BAG IVPB SCH (21:00)
[2019-05-20 22:36] VITALS: BMI 19.3
[2019-05-20] MEDS: MORPHINE SULFATE 2 MG/ML VIAL IVPUSH PRN (22:41)
[2019-05-21] MEDS: VANCOMYCIN 1 GRAM (PRE-DOCKED) 1,000 MG/250 ML BAG IVPB SCH ×2 (06:00→18:07)
[2019-05-21 07:48] LABS: BASO % 0.7 % (0-2.0); EOS % 5.2 % (0-4.5); HEMATOCRIT 40.5 % (35.4-49); HEMOGLOBIN 13.8 GM/dL (11.7-16.9); LYMPH % 17.8 % (8-40); MCH 32.7 pg (25.7-33.7); MCHC 34.1 g/dl (32.0-35.9); MEAN CELL VOLUME 95.8 fl (80-96); MEAN PLT VOLUME 7.2 fl (7.5-11.1); MONO % 9.4 % (3.8-10.2); NEUT % 66.9 % (42.8-82.8); PLATELET COUNT 241 K/MM3 (134-434); RBC 4.22 M/mm3 (4.00-5.60); RDW 13.3 % (11.9-15.9); WHITE BLOOD COUNT 9.8 K/mm3 (4.0-10.0)
[2019-05-21 08:45] LABS: ALBUMIN 3.2 g/dl (3.4-5.0); BILIRUBIN,TOTAL 0.5 mg/dL (0.2-1); BLOOD UREA NITROGEN 8.6 mg/dL (7-18); CALCIUM 8.3 mg/dL (8.5-10.1); MAGNESIUM 2.2 mg/dL (1.8-2.4); POTASSIUM 3.9 mmol/L (3.5-5.1); TOT PROT 6.2 g/dl (6.4-8.2)
[2019-05-21] MEDS ORDERED: SODIUM CHLORIDE 1,000 ML IV SCH (09:15)
[2019-05-21] MEDS: MORPHINE SULFATE 2 MG/ML VIAL IVPUSH PRN (09:46)
[2019-05-21] MEDS: ENOXAPARIN NA (PORCINE) 40 MG/0.4 ML DISP.SYRIN SQ SCH (09:47)
--- NOTE | 2019-05-21 10:17 | EKG ---
Test Reason : Blood Pressure : / mmHG Vent. Rate : 070 BPM Atrial Rate : 070 BPM P-R Int : 152 ms QRS Dur : 074 ms QT Int : 404 ms P-R-T Axes : 061 063 070 degrees QTc Int : 436 ms NORMAL SINUS RHYTHM POSSIBLE LEFT ATRIAL ENLARGEMENT BORDERLINE ECG NO PREVIOUS ECGS AVAILABLE Confirmed by GEORGE MCNEAL, OC ([id number]) on 05/21/2019 10:17:16 AM Referred By: Confirmed By:OC VAZQUEZ MD
[2019-05-21] MEDS ORDERED: oxyCODONE HCL 5 MG TABLET PO PRN (13:50)
[2019-05-21] MEDS ORDERED: ACETAMINOPHEN 325 MG TABLET (FP) PO PRN (13:51)
--- NOTE | 2019-05-21 14:08 | PN ---
Teaching Attending Note Name of Resident: Tina Luna ATTENDING PHYSICIAN STATEMENT I saw and evaluated the patient. I reviewed the resident's note and discussed the case with the resident. I agree with the resident's findings and plan as documented. SUBJECTIVE: No fever or chills. pain in R thigh is better. no SOB OBJECTIVE: NAd cv : RRR Lungs: CTAB Ext : R lower anterior thigh with packed wound with surrounding erythema and tenderness. no edema or erythema on legs or L thigh ASSESSMENT AND PLAN: 49 y/o man with h/o PE , COPD, and vertebral Fx who presented with R anterior thigh abscess 1- R thigh abscess: s/p I&D - cont vanco - consult Sx for wound care and packing - dc morphine . add oxy and tylenol - get vanco level before 4th dose 2- DVT px : Lovenox
--- NOTE | 2019-05-21 14:57 | CONSULT ---
- Consultation REQUESTING PROVIDER: CONSULT REQUEST: We have been asked to surgically evaluate this patient for (R knee abscess). PCP:Kaylyn Lacy HISTORY OF PRESENT ILLNESS: 49 y/o M w/ PMHx asthma/COPD, previous PE after breaking his back from falling off the roof admitted with R distal thigh abscess. Pt reports on 05/03 he was helping his elderly neighbor by cutting down a 6 foot pine tree from her yard using a hand saw. The tree began to tip towards him and the patient reports the saw went into his leg, just above his knee. Pt presented to [facility] ED, per EMR and pt, wound was irrigated and closed with Nylon sutures. 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 Pt reports noting erythema approx 3 days after the wound was closed, however he felt it may improve and did not follow up with the ED until the . At that time, the sutures were removed and pus was noted from the wound. Cultures were sent which have since grown MRSA. The pt was counseled on taking abx and instructed to return on 05/17 for a wound check. The pt returned to the ED on 05/19 at which time he reported significant swelling had occurred at the wound site. At that visit, pt was noted to have a 3cm area of fluctuance which was drained of copious serosanguinous fluid, loculations were broken up and wound was flushed, wound was packed. Pt was informed of culture results and sent home with Keflex and Bactrim. Pt reports picking up the abx and taking the prescribed dosage, however when he woke the following day he noted extreme pain and inability to stand on his leg. Denies fever/chills at home, n/v/d. PMHx: as above PSHx: denies Home Medications Medication Instructions Recorded Cephalexin [Keflex] 500 mg PO BID 5 Days #10 capsule 05/03/19 Cephalexin [Keflex] 500 mg PO BID #14 capsule 05/15/19 Sulfamethoxazole/Trimethoprim 1 tab PO DAILY #20 tablet 05/15/19 [Bactrim Ds -] Cephalexin Monohydrate [Keflex -] 500 mg PO BID #14 capsule 05/19/19 Sulfamethoxazole/Trimethoprim 1 tab PO BID #14 tablet 05/19/19 [Bactrim Ds -] Albuterol Sulfate Inhaler - 2 inh PO Q4H PRN 05/21/19 [Ventolin Hfa Inhaler -] Allergies Allergy/AdvReac Type Severity Reaction Status Date / Time No Known Allergies Allergy Verified 05/20/19 13:11 REVIEW OF SYSTEMS: CONSTITUTIONAL: Absent: fever, chills, diaphoresis CARDIOVASCULAR: Absent: chest pain, syncope RESPIRATORY: Absent: cough GASTROINTESTINAL: Absent: abdominal pain PHYSICAL EXAM: GENERAL: Awake, alert, and fully oriented, in no acute distress. HEAD: Normal with no signs of trauma. LOWER EXTREMITIES: R leg with approx 4x4cm fluctant mass with packing left in place, mild erythema surrounding wound. Healing laceration just below packing. Vasc: 2+ dp/pt b/l le Vital Signs Temperature 99.8 F H 05/21/19 09:00 Pulse Rate 76 05/21/19 09:00 Respiratory Rate 18 05/21/19 09:00 Blood Pressure 112/76 05/21/19 09:00 O2 Sat by Pulse Oximetry (%) 100 05/20/19 22:00 Lab Results WBC 9.8 K/mm3 (4.0-10.0) 05/21/19 07:07 RBC 4.22 M/mm3 (4.00-5.60) 05/21/19 07:07 Hgb 13.8 GM/dL (11.7-16.9) 05/21/19 07:07 Hct 40.5 % (35.4-49) 05/21/19 07:07 MCV 95.8 fl (80-96) 05/21/19 07:07 MCHC 34.1 g/dl (32.0-35.9) 05/21/19 07:07 RDW 13.3 % (11.9-15.9) 05/21/19 07:07 Plt Count 241 K/MM3 (134-434) 05/21/19 07:07 Sodium 139 mmol/L (136-145) 05/21/19 07:07 Potassium 3.9 mmol/L (3.5-5.1) 05/21/19 07:07 Chloride 106 mmol/L (98-107) 05/21/19 07:07 Carbon Dioxide 27 mmol/L (21-32) 05/21/19 07:07 Anion Gap 6 MMOL/L (8-16) L 05/21/19 07:07 BUN 8.6 mg/dL (7-18) 05/21/19 07:07 Creatinine 1.0 mg/dL (0.55-1.3) 05/21/19 07:07 Random Glucose 116 mg/dL (74-106) H 05/21/19 07:07 Calcium 8.3 mg/dL (8.5-10.1) L 05/21/19 07:07 INR 0.92 (0.83-1.09) 05/20/19 14:00 A/P: 49 y/o M w/ PMHx asthma/COPD, previous PE after breaking his back from falling off the roof admitted with R distal thigh abscess after trauma. R thigh with abscess/cellulitis +MRSA cultures -OR tomorrow for R leg abscess I&D -NPO after midnight, IVF -IV abx per ID -hold lovenox in AM -Remainder of care per primary team d/w attending Dr Pineda
--- NOTE | 2019-05-21 18:27 | PN ---
Physical Exam: SUBJECTIVE: Patient seen and examined atbedside. pt refused exam of rt L.E. abscess OBJECTIVE: Vital Signs Period Temp Pulse Resp BP Sys/Marshall Pulse Ox Last 24 Hr 98.3 F-99.9 F 76-95 18-20 106-127/69-77 100 GENERAL: The patient is awake, alert, and fully oriented, in no acute distress. HEAD: Normal with no signs of trauma. NECK: supple. LUNGS: Breath sounds equal, clear to auscultation bilaterally, no wheezes, no crackles, no accessory muscle use. HEART: Regular rate and rhythm, S1, S2 without murmur, rub or gallop. ABDOMEN: Soft, nontender, nondistended, normoactive bowel sounds, no guarding, no rebound. EXTREMITIES: 2+ pulses, warm, well-perfused, no edema. Good popliteal pulse in rt extremity, slightly swollen, not able to assess wound per patient. NEUROLOGICAL: Cranial nerves II through XII grossly intact. Normal speech, gait not observed. PSYCH: Normal mood, normal affect. SKIN: Warm, dry, no rashes or lesions noted Laboratory Results - last 24 hr 05/21/19 05/21/19 07:07 07:07 WBC 9.8 RBC 4.22 Hgb 13.8 Hct 40.5 MCV 95.8 MCH 32.7 MCHC 34.1 RDW 13.3 Plt Count 241 MPV 7.2 L Absolute Neuts (auto) 6.5 Neutrophils % 66.9 Lymphocytes % 17.8 Monocytes % 9.4 Eosinophils % 5.2 H Basophils % 0.7 Nucleated RBC % 0 Sodium 139 Potassium 3.9 Chloride 106 Carbon Dioxide 27 Anion Gap 6 L BUN 8.6 Creatinine 1.0 Est GFR (CKD-EPI)AfAm 101.98 Est GFR (CKD-EPI)NonAf 87.99 Random Glucose 116 H Calcium 8.3 L Magnesium 2.2 Total Bilirubin 0.5 AST 21 ALT 21 Alkaline Phosphatase 80 Total Protein 6.2 L Albumin 3.2 L Active Medications Generic Name Dose Route Start Last Admin Trade Name Freq PRN Reason Stop Dose Admin Acetaminophen 650 mg 05/21/19 13:51 Tylenol - PO Q6H PRN PAIN LEVEL 1-5 Albuterol Sulfate 2 puff 05/20/19 16:21 Ventolin Hfa Inhaler - IH Q4H PRN SHORT OF BREATH/WHEEZING Docusate Sodium 100 mg 05/22/19 10:00 Colace - PO DAILY KAREEN Enoxaparin Sodium 40 mg 05/20/19 16:00 05/21/19 09:47 Lovenox - SQ 40 mg DAILY [facility] Administration Vancomycin HCl 1,000 mg in 250 mls @ 166.667 mls/hr 05/20/19 18:00 05/21/19 18:07 Vancomycin (Pre-Docked) IVPB 166.667 mls/hr Q12H KAREEN Administration Protocol Sodium Chloride 1,000 mls @ 50 mls/hr 05/21/19 09:15 05/21/19 09:47 Normal Saline - IV 05/22/19 09:14 50 mls/hr ASDIR KAREEN Administration Oxycodone HCl 5 mg 05/21/19 13:50 Roxicodone - PO Q4H PRN PAIN LEVEL 6-10 ASSESSMENT/PLAN: 49 y/o male with PMH of asthma/COPD, previous PE after breaking his back from falling off the roof- presents to the ED with complaints of an abscess on his right thigh #Abscess on right thigh patients culture from 05/15 growing MRSA sensitive to clindamycin - surgery debrided it and pt refused removal of packing due to pain. -patient started on IV vanco -morphine PRN for pain -Dr. Salazar consult -monitor hemodynamics and pain #Asthma -not currently in an exacerbation -albuterol PRN F/E/N not on fluids monitor electrolytes regular diet dvt ppx: lovenox Visit type - Emergency Visit Emergency Visit: Yes ED Registration Date: 05/20/19 Care time: The patient presented to the Emergency Department on the above date and was hospitalized for further evaluation of their emergent condition. - New Patient This patient is new to me today: Yes Date on this admission: 05/21/19 - Critical Care Critical Care patient: No - Discharge Referral Referred to [facility] Med P.C.: No ATTENDING PHYSICIAN STATEMENT I saw and evaluated the patient. I reviewed the resident's note and discussed the case with the resident. I agree with the resident's findings and plan as documented. SUBJECTIVE: OBJECTIVE: ASSESSMENT AND PLAN:
[2019-05-22 06:15] LABS: ALBUMIN 3.2 g/dl (3.4-5.0); BILIRUBIN,TOTAL 0.3 mg/dL (0.2-1); BLOOD UREA NITROGEN 8.6 mg/dL (7-18); CALCIUM 8.5 mg/dL (8.5-10.1); POTASSIUM 3.9 mmol/L (3.5-5.1); TOT PROT 6.5 g/dl (6.4-8.2)
[2019-05-22 06:20] LABS: BASO % 0.9 % (0-2.0); EOS % 5.4 % (0-4.5); HEMATOCRIT 41.7 % (35.4-49); HEMOGLOBIN 14.2 GM/dL (11.7-16.9); LYMPH % 22.2 % (8-40); MCH 32.8 pg (25.7-33.7); MEAN CELL VOLUME 96.3 fl (80-96); MEAN PLT VOLUME 7.3 fl (7.5-11.1); NEUT % 60.5 % (42.8-82.8); PLATELET COUNT 229 K/MM3 (134-434); RBC 4.33 M/mm3 (4.00-5.60); RDW 13.5 % (11.9-15.9); WHITE BLOOD COUNT 8.7 K/mm3 (4.0-10.0)
[2019-05-22] MEDS: VANCOMYCIN 1 GRAM (PRE-DOCKED) 1,000 MG/250 ML BAG IVPB SCH (07:28)
[2019-05-22] MEDS ORDERED: SUCCINYLCHOLINE CHLORIDE 200 MG/10 ML SYRINGE ONE (07:39)
[2019-05-22] MEDS ORDERED: MIDAZOLAM HCL 2 MG/2 ML SINGLE DOSE VIAL ONE ×2 (07:39→10:41)
[2019-05-22] MEDS ORDERED: PROPOFOL 20 ML ONE ×5 (07:39→10:26)
[2019-05-22] MEDS ORDERED: SODIUM CHLORIDE 0.9% P/F 10 ML VIAL IJ ONE (07:42)
[2019-05-22] MEDS ORDERED: ceFAZolin SODIUM 1 GM VIAL ONE (07:42)
[2019-05-22] MEDS ORDERED: LIDOCAINE HCL/PF 2% SDV 5ML VIAL ONE ×2 (07:42→10:25)
[2019-05-22] MEDS ORDERED: MAGNESIUM SULF 50% (8.12 MEQ/2 ML-1 GM VIAL) ONE (09:36)
[2019-05-22] MEDS ORDERED: DOCUSATE SODIUM 100 MG CAPSULE (FP) PO SCH (10:00)
[2019-05-22] MEDS ORDERED: NEOSTIGMINE METHYLSULFATE 0.5 MG/1 ML - 10 ML MDV ONE (10:21)
[2019-05-22] MEDS ORDERED: GLYCOPYRROLATE 0.2 MG/1 ML VIAL ONE (10:21)
[2019-05-22] MEDS ORDERED: KETOROLAC TROMETHAMINE 30 MG/1 ML VIAL ONE (10:21)
[2019-05-22] MEDS ORDERED: oxyCODONE HCL 5 MG TABLET PO PRN (11:11)
[2019-05-22] MEDS ORDERED: ONDANSETRON 4 MG/2 ML VIAL IVPUSH PRN ×2 (11:11→11:41)
[2019-05-22] MEDS ORDERED: PROMETHAZINE HCL 25 MG/1 ML VIAL IVPUSH PRN ×2 (11:11→11:41)
--- NOTE | 2019-05-22 11:28 | OP ---
Operative Note - Note: Operative Date: 05/22/19 Pre-Operative Diagnosis: abscess and wound right thigh Operation: incision/drainage absces of right thigh and wound debridement Findings: abscess undrained and non viable tissue. Post-Operative Diagnosis: Same as Pre-op Surgeon: Alf Pineda Anesthesiologist/JEWEL BEARING GRINDER: Mookie Mead Anesthesia: General Specimens Removed: pus and non viable soft tissue Estimated Blood Loss (mls): 10 Drains & Tubes with Location: 1/2 inch iodoform.
[2019-05-22] MEDS ORDERED: ACETAMINOPHEN 325 MG TABLET (FP) PO PRN (11:41)
[2019-05-22] MEDS ORDERED: ALBUTEROL SO4 8 GM HFA INHALER IH PRN (11:41)
[2019-05-22] MEDS ORDERED: LACTATED RINGERS SOLUTION 1,000 ML IV SCH (11:45)
[2019-05-22] MEDS: DOCUSATE SODIUM 100 MG CAPSULE (FP) PO SCH (12:38)
[2019-05-22] MEDS: oxyCODONE HCL 5 MG TABLET PO PRN ×2 (12:39→22:32)
--- NOTE | 2019-05-22 13:55 | PN ---
Physical Exam: SUBJECTIVE: Patient seen and examined at bedside this AM. Pt refused to let me examine his wound, just waiting for surgery to address it in OR. OBJECTIVE: Vital Signs Period Temp Pulse Resp BP Sys/Marshall Pulse Ox Last 24 Hr 97.9 F-99.9 F 60-91 14-20 93-122/56-72 95-96 GENERAL: The patient is awake, alert, and fully oriented, in no acute distress. HEAD: Normal with no signs of trauma. NECK: supple. LUNGS: Breath sounds equal, clear to auscultation bilaterally, no wheezes, no crackles, no accessory muscle use. HEART: Regular rate and rhythm, S1, S2 without murmur, rub or gallop. ABDOMEN: Soft, nontender, nondistended, normoactive bowel sounds, no guarding, no rebound. EXTREMITIES: 2+ pulses, warm, well-perfused, no edema. Good popliteal pulse in rt extremity, slightly swollen, not able to assess wound per patient. NEUROLOGICAL: Cranial nerves II through XII grossly intact. Normal speech, gait not observed. PSYCH: Normal mood, normal affect. SKIN: Warm, dry, no rashes or lesions noted Laboratory Results - last 24 hr 05/22/19 05/22/19 05/22/19 05:30 05:30 05:30 WBC 8.7 RBC 4.33 Hgb 14.2 Hct 41.7 MCV 96.3 H MCH 32.8 MCHC 34.0 RDW 13.5 Plt Count 229 MPV 7.3 L Absolute Neuts (auto) 5.2 Neutrophils % 60.5 Lymphocytes % 22.2 D Monocytes % 11.0 H Eosinophils % 5.4 H Basophils % 0.9 Nucleated RBC % 0 Sodium 141 Potassium 3.9 Chloride 105 Carbon Dioxide 30 Anion Gap 6 L BUN 8.6 Creatinine 1.0 Est GFR (CKD-EPI)AfAm 101.98 Est GFR (CKD-EPI)NonAf 87.99 Random Glucose 107 H Calcium 8.5 Total Bilirubin 0.3 AST 22 ALT 19 Alkaline Phosphatase 83 Total Protein 6.5 Albumin 3.2 L Vancomycin Pre-Dose 6.7 L Active Medications Generic Name Dose Route Start Last Admin Trade Name Freq PRN Reason Stop Dose Admin Acetaminophen 650 mg 05/22/19 11:41 Tylenol - PO Q6H PRN PAIN LEVEL 1-5 Albuterol Sulfate 2 puff 05/22/19 11:41 Ventolin Hfa Inhaler - IH Q4H PRN SHORT OF BREATH/WHEEZING Docusate Sodium 100 mg 05/23/19 10:00 05/22/19 12:38 Colace - PO 100 mg DAILY [facility] Administration Enoxaparin Sodium 40 mg 05/23/19 10:00 Lovenox - SQ DAILY [facility] Fentanyl 50 mcg 05/22/19 11:41 Sublimaze Injection - IVPUSH [id number] PRN PAIN-PACU ORDER X 4 DOSES ONLY Vancomycin HCl 1,250 mg/ 250 mls @ 166.667 mls/hr 05/22/19 18:00 Dextrose IVPB Q12H [facility] Protocol Lactated Ringer's 1,000 mls @ 100 mls/hr 05/22/19 11:45 Lactated Ringers Solution IV ASDIR [facility] Ondansetron HCl 4 mg 05/22/19 11:41 Zofran Injection IVPUSH Q6H PRN NAUSEA AND/OR VOMITING Oxycodone HCl 5 mg 05/22/19 11:41 Roxicodone - PO Q4H PRN PAIN LEVEL 6-10 Oxycodone HCl 10 mg 05/22/19 11:41 05/22/19 12:39 Roxicodone - PO 05/23/19 11:10 10 mg Q4H PRN Administration PAIN LEVEL 7 - 10 Promethazine HCl 12.5 mg 05/22/19 11:41 Phenergan Injection - IVPUSH Q6H PRN NAUSEA-FOR RESCUE AFTER 15 MIN ASSESSMENT/PLAN: 49 y/o male with PMH of asthma/COPD, previous PE after breaking his back from falling off the roof- presents to the ED with complaints of an abscess on his right thigh #Abscess on right thigh - surgery debrided it and pt refused removal of packing due to pain. - increased vanco dose to 1.25 BID due to low trough level. -morphine PRN for pain -Dr. Salazar consult- continuing abx. -monitor hemodynamics and pain - Dr. Pineda: they were able to drain the pus and nonviable tissue. #Asthma -not currently in an exacerbation -albuterol PRN F/E/N not on fluids monitor electrolytes regular diet dvt ppx: lovenox Visit type - Emergency Visit Emergency Visit: Yes ED Registration Date: 05/20/19 Care time: The patient presented to the Emergency Department on the above date and was hospitalized for further evaluation of their emergent condition. - New Patient This patient is new to me today: No - Critical Care Critical Care patient: No - Discharge Referral Referred to [facility] Med P.C.: No ATTENDING PHYSICIAN STATEMENT I saw and evaluated the patient. I reviewed the resident's note and discussed the case with the resident. I agree with the resident's findings and plan as documented. SUBJECTIVE: OBJECTIVE: ASSESSMENT AND PLAN:
--- NOTE | 2019-05-22 16:45 | PN ---
Teaching Attending Note Name of Resident: Juanjose Krause ATTENDING PHYSICIAN STATEMENT I saw and evaluated the patient. I reviewed the resident's note and discussed the case with the resident. I agree with the resident's findings and plan as documented. SUBJECTIVE: no fever or chills. No pain in R thigh . sweating after the sx but no other issues OBJECTIVe: NAd CV: RRR Lungs: CTAB Ext : R lower thigh dressing with blood tinge. no edema on legs . DP 2+ ASSESSMENT AND PLAN: 49 y/o man with h/o PE , COPD, and vertebral Fx who presented with R anterior thigh abscess 1- R thigh MRSA abscess: POD 0 s/p debridment and drainage - cont vanco . increase dose due to trough - wound care per sx - cont pain control 2- DVT px : Lovenox hloc
[2019-05-22] MEDS ORDERED: VANCOMYCIN 1,250 MG in DEXTROSE 5%-WATER - 250 ML IVPB SCH (18:00)
[2019-05-22] MEDS ORDERED: PT OWN MED DRAWER 7, Y5N ONE (18:32)
[2019-05-22] MEDS: VANCOMYCIN 1,250 MG in DEXTROSE 5%-WATER - 250 ML IVPB SCH (18:49)
[2019-05-23] MEDS ORDERED: PT OWN MED DRAWER 7, Y5N ONE ×3 (05:06→17:36)
[2019-05-23] MEDS: VANCOMYCIN 1,250 MG in DEXTROSE 5%-WATER - 250 ML IVPB SCH ×2 (05:28→17:40)
[2019-05-23] MEDS ORDERED: HYDROmorphone HCl 2 MG/ML VIAL IVPUSH ONE (08:15)
--- NOTE | 2019-05-23 08:57 | PN ---
Progress Note (short form) - Note Progress Note: POD #1 s/p incision/drainage abscess of right thigh and debridement of non- viable tissue Noacute events per RN notes over past 24 hrs. He is Alert. C/o pain to right thigh. Denies n/v/f/c AVSS. Afebrile. Patient has very low threshold for pain. Administered Dilaudid 2mg via IVPB prior too dressing change. RLE: packing removed. Wound irrigated with sterile NS (60mL). Wound repacked with 1" iodoform, 4x4, kerlix, elevated. Eli-wound erythema decreased significantly Foot warm. Palpable DP & PT. Problem List - Problems (1) Laceration of lower extremity Assessment/Plan: POD #1 s/p I&D Right thigh abscess and non-viable tissue debrideded. Dressing changed on rounds. VNS for daily home care Pain management prior too dressing change Wound Care orders placed while he remains in hospital No further surgical intervention. Cont medical management f/u w/ Dr. Pineda detailed in DISCHARGE PLAN tab. On behalf of Dr. Pineda, thank you for the opportunity to participate in your patient's care Code(s): S81.819A - LACERATION WITHOUT FOREIGN BODY, UNSP LOWER LEG, INIT ENCNTR Qualifiers: Encounter type: initial encounter Laterality: right Qualified Code(s): S81.811A - Laceration without foreign body, right lower leg, initial encounter (2) COPD (chronic obstructive pulmonary disease) Code(s): J44.9 - CHRONIC OBSTRUCTIVE PULMONARY DISEASE, UNSPECIFIED (3) Asthma Code(s): J45.909 - UNSPECIFIED ASTHMA, UNCOMPLICATED
[2019-05-23 09:43] LABS: BASO % 0.5 % (0-2.0); EOS % 3.2 % (0-4.5); HEMATOCRIT 40.4 % (35.4-49); HEMOGLOBIN 13.9 GM/dL (11.7-16.9); LYMPH % 21.5 % (8-40); MCH 33.1 pg (25.7-33.7); MCHC 34.5 g/dl (32.0-35.9); MEAN CELL VOLUME 95.9 fl (80-96); MEAN PLT VOLUME 7.1 fl (7.5-11.1); MONO % 10.3 % (3.8-10.2); NEUT % 64.5 % (42.8-82.8); PLATELET COUNT 249 K/MM3 (134-434); RBC 4.21 M/mm3 (4.00-5.60); RDW 13.3 % (11.9-15.9); WHITE BLOOD COUNT 10.1 K/mm3 (4.0-10.0)
[2019-05-23 10:07] LABS: ALBUMIN 3.3 g/dl (3.4-5.0); BILIRUBIN,TOTAL 0.2 mg/dL (0.2-1); BLOOD UREA NITROGEN 9.8 mg/dL (7-18); CALCIUM 8.8 mg/dL (8.5-10.1); CREATININE 0.9 mg/dL (0.55-1.3); TOT PROT 6.6 g/dl (6.4-8.2)
[2019-05-23] MEDS: ENOXAPARIN NA (PORCINE) 40 MG/0.4 ML DISP.SYRIN SQ SCH ×2 (10:39→10:44)
[2019-05-23] MEDS: DOCUSATE SODIUM 100 MG CAPSULE (FP) PO SCH (10:39)
--- NOTE | 2019-05-23 11:05 | PN ---
Progress Note (short form) - Note Progress Note: Anesthesiology Post-op 49 y.o. man POD#1 s/p I&D of right lower extremity under GA. Pt. is experiencing pain due to recent dressing change but has received pain medication, which is helping. Otherwise, no anesthesia-related issues ON or this AM. VSS. 49 y.o. man with stable post-operative course. Continue management as per primary team.
--- NOTE | 2019-05-23 12:19 | OP ---
DATE OF OPERATION: 05/22/2019 PREOPERATIVE DIAGNOSIS: Abscess and wound of the right thigh. POSTOPERATIVE DIAGNOSIS: Abscess and wound of the right thigh. PROCEDURE: Incision and drainage of abscess of the right thigh and wound debridement. SURGEON: Alf Pineda MD ACCOUNTING MANAGER ASSISTANT CONTROLLER: ANESTHESIA: General. OPERATIVE FINDINGS: There was an undrained, purulent collection at the site of injury and overlying, nonviable skin and soft tissue. The rest of the findings were unremarkable. DESCRIPTION OF PROCEDURE: Patient was placed on the operating room table in supine position. After the induction of general anesthesia, the operative area was prepped with Betadine and draped in sterile fashion. A previous incision that had been made in the emergency department was enlarged using a scalpel and purulent material drained. This was sent for culture and sensitivity. All loculations were disrupted using blunt dissection, and nonviable skin and subcutaneous fat were excised sharply and sent for pathological examination. Copious irrigation was carried out with normal saline, which was proceeded by 50/50 mixture of saline and hydrogen peroxide. Hemostasis was secured with electrocautery and then the wound was packed with saline-soaked Kerlix gauze followed by dry sterile dressings, and the procedure was terminated at this point and the patient aroused from general anesthesia and transferred to the post anesthesia care unit in stable condition awake and alert. ESTIMATED BLOOD LOSS: 10 mL. REPLACEMENTS: Crystalloid. DRAINS: None. SPECIMENS: Nonviable soft tissue to Pathology. I, Alf Pindea, was physically present in the operating room from the time the patient was placed on the operating room table until he was transferred to the post anesthesia care unit in [facility] [employer]. MD MARTHA Monroe/[id number] MTDD
--- NOTE | 2019-05-23 15:47 | PN ---
Physical Exam: SUBJECTIVE: Patient seen and examined at bedside. No acute events. OBJECTIVE: General: no acute distress, comfortable lying in bed Heart- RRR, Nl S1,S2, no mrg. Lungs: CTA B/L Abdomen- ntnd Extremities- wrapped pt says Dr. Pineda evaluated it no longer eythematous or swollen, Vital Signs Period Temp Pulse Resp BP Sys/Marshall Pulse Ox Last 24 Hr 98.1 F-98.8 F 70-84 20-20 93-100/59-80 95 Laboratory Results - last 24 hr 05/23/19 05/23/19 09:08 09:08 WBC 10.1 H RBC 4.21 Hgb 13.9 Hct 40.4 MCV 95.9 MCH 33.1 MCHC 34.5 RDW 13.3 Plt Count 249 MPV 7.1 L Absolute Neuts (auto) 6.5 Neutrophils % 64.5 Lymphocytes % 21.5 Monocytes % 10.3 H Eosinophils % 3.2 Basophils % 0.5 Nucleated RBC % 0 Sodium 141 Potassium 4.0 Chloride 106 Carbon Dioxide 28 Anion Gap 6 L BUN 9.8 Creatinine 0.9 Est GFR (CKD-EPI)AfAm 115.83 Est GFR (CKD-EPI)NonAf 99.94 Random Glucose 94 Calcium 8.8 Total Bilirubin 0.2 AST 21 ALT 22 Alkaline Phosphatase 81 Total Protein 6.6 Albumin 3.3 L Active Medications Generic Name Dose Route Start Last Admin Trade Name Freq PRN Reason Stop Dose Admin Acetaminophen 650 mg 05/22/19 11:41 Tylenol - PO Q6H PRN PAIN LEVEL 1-5 Albuterol Sulfate 2 puff 05/22/19 11:41 Ventolin Hfa Inhaler - IH Q4H PRN SHORT OF BREATH/WHEEZING Docusate Sodium 100 mg 05/23/19 10:00 05/23/19 10:39 Colace - PO 100 mg DAILY [facility] Administration Enoxaparin Sodium 40 mg 05/23/19 10:00 05/23/19 10:44 Lovenox - SQ 40 mg DAILY [facility] Administration Fentanyl 50 mcg 05/22/19 11:41 Sublimaze Injection - IVPUSH [id number] PRN PAIN-PACU ORDER X 4 DOSES ONLY Vancomycin HCl 1,250 mg/ 250 mls @ 166.667 mls/hr 05/22/19 18:00 05/23/19 05: 28 Dextrose IVPB 166.667 mls/hr Q12H [facility]ARE[facility] Administration Protocol Ondansetron HCl 4 mg 05/22/19 11:41 Zofran Injection IVPUSH Q6H PRN NAUSEA AND/OR VOMITING Oxycodone HCl 5 mg 05/22/19 11:41 Roxicodone - PO Q4H PRN PAIN LEVEL 6-10 Promethazine HCl 12.5 mg 05/22/19 11:41 Phenergan Injection - IVPUSH Q6H PRN NAUSEA-FOR RESCUE AFTER 15 MIN ASSESSMENT/PLAN: 49 y/o male with PMH of asthma/COPD, previous PE after breaking his back from falling off the roof- presents to the ED with complaints of an abscess on his right thigh #Abscess on right thigh - surgery debrided it and pt refused removal of packing due to pain. - increased vanco dose to 1.25 BID due to low trough level. - pt has low tolerance for pain, dialudid 2mg administered -Dr. Salazar consult- continuing abx. - monitor hemodynamics and pain - Dr. Pineda: They removed the packing, irrigated it, and repacked with 1" iodoform, 4x4, kerlix. - keep leg elevated. - Eli-wound erythema decreased significantly Foot is warm to touch. #Asthma -not currently in an exacerbation -albuterol PRN F/E/N not on fluids monitor electrolytes regular diet dvt ppx: lovenox Visit type - Emergency Visit Emergency Visit: Yes ED Registration Date: 05/20/19 Care time: The patient presented to the Emergency Department on the above date and was hospitalized for further evaluation of their emergent condition. - New Patient This patient is new to me today: Yes Date on this admission: 05/23/19 - Critical Care Critical Care patient: No - Discharge Referral Referred to [facility] Med P.C.: No ATTENDING PHYSICIAN STATEMENT I saw and evaluated the patient. I reviewed the resident's note and discussed the case with the resident. I agree with the resident's findings and plan as documented. SUBJECTIVE: OBJECTIVE: ASSESSMENT AND PLAN:
--- NOTE | 2019-05-23 18:03 | PN ---
Teaching Attending Note Name of Resident: Juanjose Krause ATTENDING PHYSICIAN STATEMENT I saw and evaluated the patient. I reviewed the resident's note and discussed the case with the resident. I agree with the resident's findings and plan as documented. SUBJECTIVE: No fever or chills. pain in R thigh at wound site at the time of packing. No MORRIS , no SOB OBJECTIVE: NAD CV: RRR Lungs: CTAB Ext : R lower thigh wound with packing in and erythema extending medially to the thigh ( marked ) . tenderness to palpation ASSESSMENT AND PLAN: 49 y/o man with h/o PE , COPD, and vertebral Fx who presented with R anterior thigh abscess 1- R thigh MRSA abscess: POD 1 s/p debridment and drainage - monitor new erythematous area ( marked). - check vanco trough before am dose - if erythema worsens, despite therapeutic level will d/w ID about broadening Abx - wound was packed this am , cont care per surgery - cont pain control 2- DVT px : Lovenox HLOC
[2019-05-23] MEDS: oxyCODONE HCL 5 MG TABLET PO PRN (21:34)
[2019-05-24] MEDS ORDERED: PT OWN MED DRAWER 7, Y5N ONE ×2 (05:57→16:56)
[2019-05-24] MEDS: VANCOMYCIN 1,250 MG in DEXTROSE 5%-WATER - 250 ML IVPB SCH ×2 (06:02→17:17)
[2019-05-24 09:02] LABS: BASO % 1.1 % (0-2.0); EOS % 7.6 % (0-4.5); HEMATOCRIT 39.4 % (35.4-49); HEMOGLOBIN 13.5 GM/dL (11.7-16.9); LYMPH % 32.9 % (8-40); MCH 32.7 pg (25.7-33.7); MCHC 34.3 g/dl (32.0-35.9); MEAN CELL VOLUME 95.5 fl (80-96); MEAN PLT VOLUME 7.1 fl (7.5-11.1); MONO % 10.4 % (3.8-10.2); PLATELET COUNT 245 K/MM3 (134-434); RBC 4.13 M/mm3 (4.00-5.60); RDW 13.4 % (11.9-15.9); WHITE BLOOD COUNT 7.4 K/mm3 (4.0-10.0)
[2019-05-24] MEDS: ENOXAPARIN NA (PORCINE) 40 MG/0.4 ML DISP.SYRIN SQ SCH (09:23)
[2019-05-24] MEDS: DOCUSATE SODIUM 100 MG CAPSULE (FP) PO SCH (09:23)
--- NOTE | 2019-05-24 10:10 | PN ---
Physical Exam: SUBJECTIVE: Patient seen and examined this am. Says he was on and off with the pain overnight. Received oxycodone dose at 9pm and tylenol at 6am Says he is still in pain. OBJECTIVE: Vital Signs Period Temp Pulse Resp BP Sys/Marshall Pulse Ox Last 24 Hr 97.7 F-98.9 F 68-84 18-20 94-120/64-84 96 GENERAL: The patient is awake, alert, and fully oriented, in no acute distress. EYES: PERRL ENT: oropharynx clear without exudates, moist mucous membranes. NECK: supple. LUNGS: Breath sounds equal, clear to auscultation bilaterally HEART: tachycardic, normal rhythm, S1, S2 without murmur, rub or gallop. ABDOMEN: Soft, nontender, nondistended, normoactive bowel sounds EXTREMITIES: 2+ pulses, RLE with dressing. worsening faint erythema over line of demarcation above dressing. tender to palpation Laboratory Results - last 24 hr 05/23/19 05/24/19 05/24/19 09:08 05:15 08:30 WBC 7.4 RBC 4.13 Hgb 13.5 Hct 39.4 MCV 95.5 MCH 32.7 MCHC 34.3 RDW 13.4 Plt Count 245 MPV 7.1 L Absolute Neuts (auto) 3.5 Neutrophils % 48.0 D Lymphocytes % 32.9 D Monocytes % 10.4 H Eosinophils % 7.6 H D Basophils % 1.1 Nucleated RBC % 0 Sodium 141 Potassium 4.0 Chloride 106 Carbon Dioxide 28 Anion Gap 6 L BUN 9.8 Creatinine 0.9 Est GFR (CKD-EPI)AfAm 115.83 Est GFR (CKD-EPI)NonAf 99.94 Random Glucose 94 Calcium 8.8 Total Bilirubin 0.2 AST 21 ALT 22 Alkaline Phosphatase 81 Total Protein 6.6 Albumin 3.3 L Vancomycin Pre-Dose 13.2 L ASSESSMENT/PLAN: 49 y/o male with PMH of asthma/COPD, previous PE after breaking his back from falling off the roof- presents to the ED with complaints of an abscess on his right thigh. #MRSA + R Ant Thigh Abscess -POD #2 debridement and abscess -IV abx: Vanc Day 5 -Am vanc trough 13 -Progressing faint erythema. Will follow ID reccs -Pain control with oxycodone -FU sx reccs #FEN -not on fluids -monitor electrolytes -regular diet #DVT ppx -lovenox sq -cont. current management for now Visit type - Emergency Visit Emergency Visit: Yes ED Registration Date: 05/20/19 Care time: The patient presented to the Emergency Department on the above date and was hospitalized for further evaluation of their emergent condition. - New Patient This patient is new to me today: Yes Date on this admission: 05/24/19 - Critical Care Critical Care patient: No ATTENDING PHYSICIAN STATEMENT I saw and evaluated the patient. I reviewed the resident's note and discussed the case with the resident. I agree with the resident's findings and plan as documented. SUBJECTIVE: OBJECTIVE: ASSESSMENT AND PLAN:
--- NOTE | 2019-05-24 11:11 | PN ---
Teaching Attending Note Name of Resident: Brianna Nguyen ATTENDING PHYSICIAN STATEMENT I saw and evaluated the patient. I reviewed the resident's note and discussed the case with the resident. I agree with the resident's findings and plan as documented. SUBJECTIVE: No fever or chills. tolerable pain in R thigh wound. no diarrhea OBJECTIVE: NAD CV: RRR Lungs: CTAB Ext: R lower thigh wound with packing in . Medial thigh erythema is fainter but extends beyond the line. slight tenderness to palpation ASSESSMENT AND PLAN: 49 y/o man with h/o PE , COPD, and vertebral Fx who presented with R anterior thigh abscess 1- R thigh MRSA abscess: POD 2 s/p debridment and drainage - monitor new erythematous area . - vanco level is therapeutic - d/w ID who will evaluate - D/W Dr. Carter, patient can shower. packing to be changed today - cont pain control 2- DVT px : Lovenox HLOC
[2019-05-24] MEDS: oxyCODONE HCL 5 MG TABLET PO PRN (11:20)
--- NOTE | 2019-05-24 12:58 | PN ---
Progress Note (short form) - Note Progress Note: no complaints packing just removed by surgery Vital Signs Period Temp Pulse Resp BP Sys/Marshall Pulse Ox Last 24 Hr 97.7 F-98.9 F 68-84 18-20 94-120/64-84 96-96 cor-rrr lungs clear abd soft,nt ext right thigh wound clean with clean base, no purulence noted, minimal erythema surrouding the wound CBC, BMP 05/24/19 08:30 05/23/19 09:08 Microbiology 05/20/19 13:45 Blood - Peripheral Venous Blood Culture - Preliminary NO GROWTH OBTAINED AFTER 72 HOURS, INCUBATION TO CONTINUE FOR 2 DAYS. 05/20/19 13:45 Blood - Peripheral Venous Blood Culture - Preliminary NO GROWTH OBTAINED AFTER 72 HOURS, INCUBATION TO CONTINUE FOR 2 DAYS. Laboratory Tests 05/24/19 05:15 Vancomycin Pre-Dose 13.2 L Current Medications Acetaminophen (Tylenol -) 650 mg PO Q6H PRN PRN Reason: PAIN LEVEL 1-5 Last Admin: 05/24/19 06:15 Dose: 650 mg Albuterol Sulfate (Ventolin Hfa Inhaler -) 2 puff IH Q4H PRN PRN Reason: SHORT OF BREATH/WHEEZING Docusate Sodium (Colace -) 100 mg PO DAILY [facility] Last Admin: 05/24/19 09:23 Dose: 100 mg Enoxaparin Sodium (Lovenox -) 40 mg SQ DAILY [facility] Last Admin: 05/24/19 09:23 Dose: 40 mg Fentanyl (Sublimaze Injection -) 50 mcg IVPUSH [id number] PRN PRN Reason: PAIN-PACU ORDER X 4 DOSES ONLY Vancomycin HCl 1,250 mg/ (Dextrose) 250 mls @ 166.667 mls/hr IVPB Q12H [facility]; Protocol Last Admin: 05/24/19 06:02 Dose: 166.667 mls/hr Ondansetron HCl (Zofran Injection) 4 mg IVPUSH Q6H PRN PRN Reason: NAUSEA AND/OR VOMITING Oxycodone HCl (Roxicodone -) 5 mg PO Q4H PRN PRN Reason: PAIN LEVEL 6-10 Last Admin: 05/24/19 11:20 Dose: 5 mg Promethazine HCl (Phenergan Injection -) 12.5 mg IVPUSH Q6H PRN PRN Reason: NAUSEA-FOR RESCUE AFTER 15 MIN a/p wound appears clean with minimal erythema-on iv vancomycin -if continues to improve no objection to switch to po bactrim 1 ds po bid for 7 days or clindamycin 300 tid for 7 days needs to learn how to pack the wound
[2019-05-25] MEDS ORDERED: PT OWN MED DRAWER 7, Y5N ONE (05:52)
[2019-05-25] MEDS: VANCOMYCIN 1,250 MG in DEXTROSE 5%-WATER - 250 ML IVPB SCH (06:52)
[2019-05-25] MEDS: DOCUSATE SODIUM 100 MG CAPSULE (FP) PO SCH (10:15)
[2019-05-25] MEDS: ENOXAPARIN NA (PORCINE) 40 MG/0.4 ML DISP.SYRIN SQ SCH (10:15)
[2019-05-25 12:22] VITALS: BP 113/68; PULSE 71; TEMP 98.6
--- NOTE | 2019-05-25 14:04 | DS ---
Physical Examination Vital Signs: Vital Signs Temperature 98.6 F 05/25/19 10:00 Pulse Rate 71 05/25/19 10:00 Respiratory Rate 20 05/25/19 10:00 Blood Pressure 113/68 05/25/19 10:00 O2 Sat by Pulse Oximetry (%) 97 05/25/19 09:00 Findings/Remarks: no pain , no fever or chills. PE: NAD CV: RRR Lungs: CTAB Ext: R lower thigh wound with packing in . Medial thigh erythema has almost resolved . Labs: CBC, BMP 05/24/19 08:30 05/23/19 09:08 Discharge Summary Reason For Visit: LACERATION OF LOWER EXTREMITY/CELLULITIS Current Active Problems Asthma (Acute) COPD (chronic obstructive pulmonary disease) (Acute) Cellulitis and abscess of lower extremity (Acute) Hospital Course: 49 y/o man with h/o PE , COPD, and vertebral Fx who presented with R anterior thigh abscess. He was drained and debrrided by Dr. young, cx was not sent again due to positive Cx fro MRSA nicolas prior ER visit. He was given vanco and responded well with packing change daily. case was d/w Dr. Young and decision was made to send hoem withno packing and just clean gauze. to follow with Dr. yougn in 1 week . he was d/w on Bactrim for one more week . time spent on dc 30 min Condition: Improved - Instructions Diet, Activity, Other Instructions: Dr. Young Discharge Instructions Post Operative Instructions Physical activity No heavy lifting until you see your surgeon. You may walk unlimited amounts of and climb stairs. You may resume driving the car when you feel safe and comfortable behind the wheel. Wound care change the dressing daily ( clean gauze , dry ) . DO NOT submerge your leg in pool, bath etc. You may shower and it's ok for the soapy water to run through the wound. gently pat dry Diet There are no dietary restrictions. Eat healthy, high-fiber foods. Drink 6 to 8 glasses of liquid each day. This will assist in keeping your bowels are regular. Pain management You may take Tylenol or acetaminophen or Ibuprofen (for example, Motrin, Advil etc.) Call Dr. Young for any of the following: Severe pain not relieved by medication Fever of 101 or higher Excessive bleeding or drainage on dressing Inability to urinate Call the office at [phone] for a post operative appointment in 7 - 10 days. ------ Do not exceed 4 grams of tylenol at any given day ( 24 hr period ) please report any fever , worsening erythema, or drainage from your wound to your doctor. take bactrim twice a day for a week . please get the medication from the pharmacy today and start in the evening report any diarrhea or any change in your skin color to your doctor ( yellow skin ) follow up with your primary care doctor in 1 week Jose Miguel carrasco Referrals: Alf Young MD [Staff Physician] - Disposition: HOME - Home Medications Comprehensive Discharge Medication List: Ambulatory Orders Albuterol Sulfate Inhaler - [Ventolin HFA Inhaler -] 2 inh PO Q4H PRN 05/21/19 Acetaminophen [Tylenol] 650 mg PO Q8H #30 capsule 05/25/19 Ibuprofen 400 mg PO Q8H #15 capsule 05/25/19 Sulfamethoxazole/Trimethoprim [Bactrim Ds -] 1 tab PO BID #14 tablet 05/25/19 This patient is new to me today: No Emergency Visit: Yes ED Registration Date: 05/20/19 Care time: The patient presented to the Emergency Department on the above date and was hospitalized for further evaluation of their emergent condition. Critical Care patient: No - Discharge Referral Referred to [facility] Med [facility].C.: No
--- NOTE | 2019-05-28 16:42 | PATH ---
Surgical Pathology Report Patient Name: FARIDA SANDERSON Med. Rec. #: [id number] /Age/Gender: 1970 (Age: 49) / M Account: [id number] Location: [facility] MED/SURG Taken: 05/22/2019 Received: 05/22/2019 Reported: 05/28/2019 Physicians: Franki Mcdonald MD Specimen(s) Received WOUND Clinical History Abscess right thigh Final Diagnosis WOUND, RIGHT THIGH, INCISION AND DRAINAGE: SKIN SHOWING ABSCESS. Electronically Signed Malka Lovell M.D. Gross Description Received in formalin, labeled "wound", is a portion of skin with attached subcutaneous tissue measuring 2.2 x 1.6 x 1.1 cm. The surface of the skin shows areas of ulceration and brown discoloration. The specimen is serially sectioned and entirely submitted in 2 cassettes.
== END 2019-05-25 14:12 | disposition home or self-care (01) | DRG 383 ==
LOC: JER 12:38 → JERFT 12:38 → JERBED 15:07 → J8W 20:08
PROVIDERS: ADMIT Internal Medicine; ATTEND Internal Medicine
PROC: 0J9L0ZX Drainage of Right Upper Leg Subcutaneous Tissue and Fascia, Open Approach, Diagnostic (ICD-10-PCS; 2019-05-22)
PROC: 0JBL0ZZ Excision of Right Upper Leg Subcutaneous Tissue and Fascia, Open Approach (ICD-10-PCS; principal; 2019-05-22 12:00)
DX: L03.115 Cellulitis of right lower limb (principal); J45.909 Unspecified asthma, uncomplicated; J44.9 Chronic obstructive pulmonary disease, unspecified; Z72.0 Tobacco use; Z72.89 Other problems related to lifestyle; Z91.120 Patient's intentional underdosing of medication regimen due to financial hardship; B95.62 Methicillin resistant Staphylococcus aureus infection as the cause of diseases classified elsewhere; L53.9 Erythematous condition, unspecified
CPT/HCPCS: 36415; 71046-TC-FY; 80053; 83735; 85025; 85610; 87040; 88304-TC; 93005; 93010; 94760; 99282-25; G0480; J7030